=== PATIENT | male | born 1970 | race Hispanic/Latino ===

== ENCOUNTER 2018-04-22 15:39 | Outpatient (CLI) | payer MEDICAID ==
--- NOTE | 2018-04-24 09:06 | Vascular Lab Report ---
Right Lower Extremity Venous Duplex Study: Reason for Exam: Acute venous thrombosis. Comments on the Right: All veins visualized are freely compressible without evidence of internal echogenicity. Flow is spontaneous and phasic throughout. No evidence of acute or chronic thrombus is seen in any of the vessels visualized. Right inguinal adenopathy is noted. Comments on the Left: A limited duplex study was done of the proximal veins of the left lower extremity. All veins visualized are freely compressible without evidence of internal echogenicity. Flow is spontaneous and phasic throughout. No evidence of acute or chronic thrombus is seen in any of the vessels visualized. Impression: No evidence of acute or chronic deep venous thrombosis in the right lower extremity. Right inguinal adenopathy is noted.
== END 2018-04-22 15:40 | disposition home or self-care (01) ==
LOC: VAS 15:39
PROVIDERS: ATTEND Podiatrist Foot & Ankle Surgery
DX: I82.401 Acute embolism and thrombosis of unspecified deep veins of right lower extremity (principal); E11.9 Type 2 diabetes mellitus without complications; I10 Essential (primary) hypertension; E78.00 Pure hypercholesterolemia, unspecified; J45.909 Unspecified asthma, uncomplicated; K21.9 Gastro-esophageal reflux disease without esophagitis; M10.9 Gout, unspecified; Z87.891 Personal history of nicotine dependence

== ENCOUNTER 2018-05-27 18:06 | Emergency (ER) | payer MEDICAID ==
--- NOTE | 2018-05-27 18:50 | Emergency Department Report ---
ED CPR HPI - General Stated Complaint: CARDIAC ARREST Time Seen by Provider: 05/27/18 18:06 Source: EMS Mode of arrival: Stretcher Limitations: Altered Mental Status, Physical Limitation - History of Present Illness MD Complaint: found unresponsive, stopped breathing, collapsed during rest Bystander CPR Performed: Yes AED Applied by Bystander/Fusion Juncture Grinder: No Shock Advised: No Initial Findings in the Field: unresponsive, no respirations, no pulse ROSC in the Field: No Associated Injuries: No Treatments Prior to Arrival: intubation, chest compressions, epinephrine mgs #, sodium bicarbonate - Related Data Home Medications Medication Instructions Recorded Confirmed Last Taken ALPRAZolam [Xanax TAB] 1 tab PO TID 10/05/13 12/26/15 1 Day Ago ~10/05/15 1mg Fenofibrate Nanocrystallized 1 tab PO DAILY 10/05/13 12/26/15 1 Day Ago [Tricor] ~10/05/15 48 PARoxetine [Paxil] 40 mg PO DAILY 10/05/13 12/26/15 1 Day Ago ~10/05/15 40 Metoprolol [Lopressor TAB] 25 tab PO BID 10/06/15 12/26/15 1 Day Ago ~10/05/15 25 Previous Rx's Medication Instructions Recorded Last Taken Type Insulin Aspart [NovoLOG Flexpen] 20 units SC TID #1 ml 03/17/15 1 Day Ago Rx ~10/05/15 20 Lisinopril [Zestril TAB] 5 mg PO QDAY #30 tablet 03/17/15 1 Day Ago Rx ~10/05/15 5 HYDROcodone/APAP 5-325 [[place] 1 each PO Q6HR PRN #16 tablet 12/26/15 Unknown Rx 5/325] Sulfamethoxazole/Trimethoprim 1 each PO BID #14 tablet 12/26/15 Unknown Rx [Bactrim DS TAB] Clindamycin [Clindamycin CAP] 300 mg PO Q8H 7 Days cap 05/23/18 Unknown Rx Furosemide [Lasix] 20 mg PO DAILY #7 tablet 05/23/18 Unknown Rx HYDROcodone/APAP 5-325 [[place] 1 each PO Q6HR PRN #15 tablet 05/23/18 Unknown Rx 5/325] Ibuprofen [Motrin] 800 mg PO Q8HR PRN #20 tablet 05/23/18 Unknown Rx Allergies Allergy/AdvReac Type Severity Reaction Status Date / Time heparin AdvReac Intermediate Hives Verified 03/01/15 09:26 ED Review of Systems ROS: Stated complaint: CARDIAC ARREST Other details as noted in HPI Comment: Unobtainable due to pts medical conditions ED Past Medical Hx - Past Medical History Previous Medical History?: Yes Hx Hypertension: Yes Hx Diabetes: Yes Hx GERD: Yes Hx Asthma: Yes Additional medical history: 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 - Surgical History Past Surgical History?: Yes Hx Open Heart Surgery: Yes (porcine mitral valve replacement) - Family History Family history: no significant - Social History Smoking Status: Current Every Day Smoker Substance Use Type: None - Medications Home Medications: Home Medications Medication Instructions Recorded Confirmed Last Taken Type ALPRAZolam [Xanax TAB] 1 tab PO TID 10/05/13 12/26/15 1 Day Ago History ~10/05/15 1mg Fenofibrate Nanocrystallized 1 tab PO DAILY 10/05/13 12/26/15 1 Day Ago History [Tricor] ~10/05/15 48 PARoxetine [Paxil] 40 mg PO DAILY 10/05/13 12/26/15 1 Day Ago History ~10/05/15 40 Insulin Aspart [NovoLOG Flexpen] 20 units SC TID #1 ml 03/17/15 12/26/15 1 Day Ago Rx ~10/05/15 20 Lisinopril [Zestril TAB] 5 mg PO QDAY #30 tablet 03/17/15 12/26/15 1 Day Ago Rx ~10/05/15 5 Metoprolol [Lopressor TAB] 25 tab PO BID 10/06/15 12/26/15 1 Day Ago History ~10/05/15 25 HYDROcodone/APAP 5-325 [[place] 1 each PO Q6HR PRN #16 tablet 12/26/15 Unknown Rx 5/325] Sulfamethoxazole/Trimethoprim 1 each PO BID #14 tablet 12/26/15 Unknown Rx [Bactrim DS TAB] Clindamycin [Clindamycin CAP] 300 mg PO Q8H 7 Days cap 05/23/18 Unknown Rx Furosemide [Lasix] 20 mg PO DAILY #7 tablet 05/23/18 Unknown Rx HYDROcodone/APAP 5-325 [[place] 1 each PO Q6HR PRN #15 tablet 05/23/18 Unknown Rx 5/325] Ibuprofen [Motrin] 800 mg PO Q8HR PRN #20 tablet 05/23/18 Unknown Rx ED Physical Exam - General Limitations: Altered Mental Status, Physical Limitation General appearance: obtunded - Head Head exam: Present: atraumatic, normocephalic - Eye Pupils: Present: other (pupils fixed and dilated) - ENT ENT exam: Present: mucous membranes dry - Neck Neck exam: Present: normal inspection - Respiratory Respiratory exam: Present: other (ET tube in place) - Cardiovascular Cardiovascular Exam: Present: other (no cardiac motion noted. no pulse noted) - GI/Abdominal GI/Abdominal exam: Present: soft - Skin Skin exam: Present: warm, dry ED Course - Reevaluation(s) Reevaluation #1: Patient evaluated immediately upon arrival. Patient PMD on the monitor. Patient has a functioning left IO. Left IJ placed. Patient is intubated by EMS. Report received from EMS. 2 epis and 1 bicarbonate given by EMS. See code note. Code ran In accordance with ACLS guidelines report received from EMS. 05/27/18 18:03 See code notes. Patient has arrested multiple times. Unable to revive patient. Multiple rounds of CPR begun. Multiple meds given. Unable to restore cardiac activity. Ultrasound done to verify no cardiac motion. All show no cardiac motion noted. No pulse noted. No spontaneous respirations. Pupils fixed and dilated. Resuscitation efforts terminated. Family notified 05/27/18 19:00 ED Medical Decision Making - Medical Decision Making Patient is a 47-year-old male presents August from an full cardiac arrest. Patient was intubated by EMS. Patient initiated a serious protocol. Resuscitation efforts were terminated due to unable to resuscitate or induce cardiac motion.. Ultrasound verified. See code notes. Cold ran in accordance with ACLS protocols and guidelines - Differential Diagnosis cardiac arrest. Critical Care Time: Yes Critical care attestation.: If time is entered above; I have spent that time in minutes in the direct care of this critically ill patient, excluding procedure time. Critical Care Time: 80 minutes ED Disposition Clinical Impression: Cardiac arrest Disposition: DC-20 Is pt being admited?: No Does the pt Need Aspirin: No Condition: Undetermined Time of Disposition: 19:00
[2018-05-27] MEDS ORDERED: ADRENALIN 8 MG in NACL 0.9% 250ML 242 ML IV SCH (19:00)
[2018-05-27] MEDS ORDERED: ADRENALIN ONE (22:08)
== END 2018-05-27 21:07 ==
LOC: ED 18:06
DX: I46.9 Cardiac arrest, cause unspecified (principal); I10 Essential (primary) hypertension; E11.9 Type 2 diabetes mellitus without complications; K21.9 Gastro-esophageal reflux disease without esophagitis; F17.200 Nicotine dependence, unspecified, uncomplicated; J45.909 Unspecified asthma, uncomplicated; Z88.5 Allergy status to narcotic agent; Z79.4 Long term (current) use of insulin
CPT/HCPCS: 31500; 82962; 92950; 99291; 99292; J0171; J7050